=== PATIENT | male | born 1950 | race Caucasian/White ===

== ENCOUNTER 2018-05-06 16:27 | Observation (INO) ==
[2018-05-06] MEDS ORDERED: Sod Chloride 0.9% Inj 1,000 ML IV.SIG ONE (17:09)
--- NOTE | 2018-05-06 17:37 | XR ---
EXAM DATE: 05/06/2018 5:34 PM EDT AGE/SEX: 68 years / Male INDICATIONS: Short of breath. CLINICAL DATA: This is the patient's initial encounter. Patient reports that signs and symptoms have been present for 1 day and indicates a pain score of 0/10. MEDICAL/SURGICAL HISTORY: None. None. [place] [facility] [place]. . FINDINGS: A single AP view of the chest demonstrates the lungs to be symmetrically aerated without evidence of mass, infiltrate or effusion. The cardiomediastinal contours are unremarkable. Osseous structures a re intact. CONCLUSION: Negative examination. Electronically signed by: Ted Gore MD 05/06/2018 5:35 PM EDT
--- NOTE | 2018-05-06 17:48 | ED ---
HPI General Chief complaint: Weakness Stated complaint: Weakness Time Seen by Provider: 05/06/18 16:51 Source: patient Mode of arrival: EMS Limitations: no limitations History of Present Illness HPI Narrative: 68-year-old male presents to the emergency department via EMS for evaluation of generalized weakness for 2 weeks. He states that he is so weak has been unable to walk for the past 2 days, therefore not eating. The patient is disheveled. He has PVCs on his feet. He has large Palmira rash under the breast in the right axilla with drainage noted. The patient denies any pain. He denies any falls or head injury. He denies being on anticoagulants. The patient lives alone. He states he has no family nearby. Moderate severity. MD Complaint: generalized weakness Onset (ago): week(s) (2) Duration: constant Location: generalized, LLE and RLE Migration: none Severity: moderate Relieving factors: none Exacerbating factors: none Associated symptoms: denies other symptoms Related Data Home Medications Medication Instructions Recorded Confirmed aspirin [Aspir-81] 81 mg PO DAILY 05/06/18 05/06/18 Allergies Allergy/AdvReac Type Severity Reaction Status Date / Time Iodinated Contrast- Oral and Allergy Mild Nausea/Vomi Verified 03/26/18 11:28 IV Dye ting Review of Systems ROS: all other systems reviewed are negative [facility] Social History Social History Smoking Status: Unknown if ever smoked How Often Do You Have a Drink Containing Alcohol: Unable to Obtain Immunization History Tetanus Immunization: Unsure Exam Narrative Exam Narrative: GENERAL: Dissheveled, obese male patient, afebrile. SKIN: Focused skin assessment warm/dry. Patient has rash consistent with intertrigo to right axilla, under bilateral breasts. HEAD: Normocephalic. Atraumatic. EYES: No scleral icterus. No injection or drainage. NECK: Supple, trachea midline. No JVD or lymphadenopathy. CARDIOVASCULAR: Regular rate and rhythm without murmurs, gallops, or rubs. RESPIRATORY: Breath sounds equal bilaterally. No accessory muscle use. Lung sounds are clear to auscultation. GASTROINTESTINAL: Abdomen soft, non-tender, nondistended. MUSCULOSKELETAL: No cyanosis, or edema. BACK: Nontender without obvious deformity. No CVA tenderness. Course Initial Documented Vital Signs Temperature 97.5 F L 05/06/18 16:43 Pulse Rate 96 H 05/06/18 16:43 Respiratory Rate 25 H 05/06/18 16:43 Blood Pressure 125/61 05/06/18 16:43 Pulse Oximetry 96 05/06/18 16:43 Last Documented Vital Signs Temperature 97.5 F L 05/06/18 16:43 Pulse Rate 94 H 05/06/18 19:54 Respiratory Rate 18 05/06/18 19:54 Blood Pressure 124/55 L 05/06/18 19:54 Pulse Oximetry 97 05/06/18 19:54 Medical Decision Making MDM Narrative Medical decision making narrative: 68-year-old male presents to the emergency department via EMS for evaluation of generalized weakness, inability to eat for the past 2 days because he cannot walk. He lives alone. Otherwise, he has no complaints. IV access obtained. EKG, CBC, CMP, CK, troponin, magnesium, PTT, PT/INR, chest x-ray ordered and pending. Patient is given normal saline 1 L IV bolus. EKG shows sinus rhythm, heart rate 91, no acute ST changes. CBC showed leukocytosis 12.8. CMP shows hyponatremia 135, hyperkalemia 5.2, BUN 28. CK is 180. Troponin is less than 0.02. Magnesium is 1.8. PTT is 25.1. PT/INR is 10.9/1.1. Chest x-ray is negative. Patient be admitted for generalized weakness, dehydration. Dr. Gonzalez accepted admission. Medical Screen Exam Complete: Yes Emergency Medical Condition: Yes Differential Diagnosis Differential Diagnosis: Electrolyte abnormality versus dehydration versus inability care for self Medical Records Medical records reviewed: Yes I reviewed the patient's medical records. Lab Data Result diagrams: 05/06/18 18:37 05/06/18 18:37 Lab Results 05/06/18 05/06/18 05/06/18 Range/Units 18:37 18:37 18:37 WBC 12.8 H (4.0-11.0) th/mm3 RBC 4.69 (4.50-5.90) mil/mm3 Hgb 14.2 (13.0-17.0) gm/dL Hct 44.1 (39.0-51.0) % MCV 94.1 (80.0-100.0) fL MCH 30.3 (27.0-34.0) pg MCHC 32.2 (32.0-36.0) % RDW 14.7 (11.6-17.2) % Plt Count 276 (150-450) th/mm3 MPV 10.8 (7.0-11.0) fL Prelim Diff (Auto) [employer] Neut % (Auto) 85.6 H (16.0-70.0) % Lymph % (Auto) 7.4 L (9.0-44.0) % [place] % (Auto) 6.2 (0.0-8.0) % Eos % (Auto) 0.6 (0.0-4.0) % Baso % (Auto) 0.2 (0.0-2.0) % Neut # (Auto) 11.0 H (1.8-7.7) th/mm3 Lymph # (Auto) 1.0 (1.0-4.8) th/mm3 [place] # (Auto) 0.8 (0.0-0.9) th/mm3 Eos # (Auto) 0.1 (0.0-0.4) th/mm3 Baso # (Auto) 0.0 (0.0-0.2) th/mm3 WBC Differential Manual diff final Seg Neuts % (Manual) 87 H (16-70) % Lymphocytes % (Manual) 6 L (9-44) % Monocytes % (Manual) 6 (0-8) % Eosinophils % (Manual) 1 (0-4) % Abs Neuts (Manual) 11.1 H (1.8-7.7) th/mm3 Differential Comment . Platelet Estimate Normal (Normal) Platelet Morphology Normal (Normal) RBC Morphology Normal (Normal) PT 10.9 (9.8-11.6) sec INR 1.1 Ratio APTT 25.1 (24.3-30.1) sec Sodium 135 L (136-145) meq/L Potassium 5.2 H (3.5-5.1) meq/L Chloride 101 (98-107) meq/L Carbon Dioxide 20.6 L (21.0-32.0) meq/L Anion Gap 13 (5-15) meq/L BUN 28 H (7-18) mg/dL Creatinine 1.00 (0.60-1.30) mg/dL Estimated GFR 74 L (>89) mL/min Random Glucose 56 L (74-106) mg/dL Calcium 8.8 (8.5-10.1) mg/dL Magnesium 1.8 (1.5-2.5) mg/dL Total Bilirubin 0.9 (0.2-1.0) mg/dL AST 38 H (15-37) U/L ALT 22 (12-78) U/L Alkaline Phosphatase 97 (45-117) U/L Total Creatine Kinase 180 (39-308) U/L Troponin I Less than 0.02 L (0.02-0.05) ng/mL Total Protein 8.1 (6.4-8.2) g/dL Albumin 3.4 (3.4-5.0) g/dL Urine Color (Yellw/Straw) Urine Clarity (Clear) Urine pH (5.0-8.5) Ur Specific [place] (1.002-1.035) Urine Protein (Neg-Trace) mg/dL Urine Glucose (UA) (Negative) mg/dL Urine Ketones (Negative) mg/dL Urine Occult Blood (Negative) Urine Nitrate (Negative) Urine Bilirubin (Negative) Urine Urobilinogen (Less than 2) mg/dL Ur Leukocyte Esterase (Negative) Urine RBC (0-3) /hpf Urine WBC (0-5) /hpf Hyaline Casts (0-3) /lpf Urine Mucus (Occasional) /lpf Micro UA Comment Ur Microscopic Review Urine Culture Comments 05/06/18 Range/Units 19:50 WBC (4.0-11.0) th/mm3 RBC (4.50-5.90) mil/mm3 Hgb (13.0-17.0) gm/dL Hct (39.0-51.0) % MCV (80.0-100.0) fL MCH (27.0-34.0) pg MCHC (32.0-36.0) % RDW (11.6-17.2) % Plt Count (150-450) th/mm3 MPV (7.0-11.0) fL Prelim Diff (Auto) Neut % (Auto) (16.0-70.0) % Lymph % (Auto) (9.0-44.0) % [place] % (Auto) (0.0-8.0) % Eos % (Auto) (0.0-4.0) % Baso % (Auto) (0.0-2.0) % Neut # (Auto) (1.8-7.7) th/mm3 Lymph # (Auto) (1.0-4.8) th/mm3 [place] # (Auto) (0.0-0.9) th/mm3 Eos # (Auto) (0.0-0.4) th/mm3 Baso # (Auto) (0.0-0.2) th/mm3 WBC Differential Seg Neuts % (Manual) (16-70) % Lymphocytes % (Manual) (9-44) % Monocytes % (Manual) (0-8) % Eosinophils % (Manual) (0-4) % Abs Neuts (Manual) (1.8-7.7) th/mm3 Differential Comment Platelet Estimate (Normal) Platelet Morphology (Normal) RBC Morphology (Normal) PT (9.8-11.6) sec INR Ratio APTT (24.3-30.1) sec Sodium (136-145) meq/L Potassium (3.5-5.1) meq/L Chloride (98-107) meq/L Carbon Dioxide (21.0-32.0) meq/L Anion Gap (5-15) meq/L BUN (7-18) mg/dL Creatinine (0.60-1.30) mg/dL Estimated GFR (>89) mL/min Random Glucose (74-106) mg/dL Calcium (8.5-10.1) mg/dL Magnesium (1.5-2.5) mg/dL Total Bilirubin (0.2-1.0) mg/dL AST (15-37) U/L ALT (12-78) U/L Alkaline Phosphatase (45-117) U/L Total Creatine Kinase (39-308) U/L Troponin I (0.02-0.05) ng/mL Total Protein (6.4-8.2) g/dL Albumin (3.4-5.0) g/dL Urine Color Yellow (Yellw/Straw) Urine Clarity Hazy H (Clear) Urine pH 5.0 (5.0-8.5) Ur Specific [place] 1.026 (1.002-1.035) Urine Protein 30 H (Neg-Trace) mg/dL Urine Glucose (UA) Negative (Negative) mg/dL Urine Ketones 80 or greater H (Negative) mg/dL Urine Occult Blood Moderate H (Negative) Urine Nitrate Negative (Negative) Urine Bilirubin Negative (Negative) Urine Urobilinogen Less than 2 (Less than 2) mg/dL Ur Leukocyte Esterase Negative (Negative) Urine RBC 2 (0-3) /hpf Urine WBC 1 (0-5) /hpf Hyaline Casts 5 (0-3) /lpf Urine Mucus Few H (Occasional) /lpf Micro UA Comment Cath-culture not ind Ur Microscopic Review Not Reportable Urine Culture Comments Cath-cult not ind Imaging Data Radiologist's impression: Chest X-Ray 05/06/18 17:08 CONCLUSION: Negative examination. Discharge Plan Discharge Disposition Patient Disposition: 30 Still Patient Discharge Details Diagnosis: Generalized weakness, Dehydration Physicians Team ED Provider: Taylor Sampson ED Midlevel Provider: Eloise Pressley Primary Care Provider: Primary Care Gita Maciel Rxs /Orders / Referrals /Forms Prescriptions: No Action aspirin [Aspir-81] 81 mg Tablet,Delayed Release (Dr/Ec) 81 mg PO DAILY RF: 0 Discharge Interventions Interventions: Vital Signs Last Done: 05/06/18 19:54 Status ED Status: Admitted Observation Patient
[2018-05-06 20:00] LABS: Hematocrit 44.1 % (39.0-51.0); Hemoglobin 14.2 gm/dL (13.0-17.0); Mean Corpuscular HGB Conc 32.2 % (32.0-36.0); Mean Corpuscular Hemoglobin 30.3 pg (27.0-34.0); Mean Corpuscular Volume 94.1 fL (80.0-100.0); Mean Platelet Volume 10.8 fL (7.0-11.0); Platelet Count 276 th/mm3 (150-450); Red Blood Count 4.69 mil/mm3 (4.50-5.90); Red Cell Distribution Width 14.7 % (11.6-17.2); White Blood Count 12.8 th/mm3 (4.0-11.0)
[2018-05-06 20:03] LABS: Activated Partial Thrombo Time 25.1 sec (24.3-30.1); INR 1.1 Ratio; Prothrombin Time 10.9 sec (9.8-11.6)
[2018-05-06 20:07] LABS: Alanine Aminotransferase 22 U/L (12-78); Albumin 3.4 g/dL (3.4-5.0); Anion Gap 13 meq/L (5-15); Aspartate Aminotransferase 38 U/L (15-37); Blood Urea Nitrogen 28 mg/dL (7-18); Calcium 8.8 mg/dL (8.5-10.1); Carbon Dioxide 20.6 meq/L (21.0-32.0); Chloride 101 meq/L (98-107); Glomerular Filtration Rate 74 mL/min (>89); Glucose,Random 56 mg/dL (74-106); Magnesium 1.8 mg/dL (1.5-2.5); Potassium 5.2 meq/L (3.5-5.1); Sodium 135 meq/L (136-145)
[2018-05-06 20:10] LABS: Alkaline Phosphatase 97 U/L (45-117); Creatine Kinase 180 U/L (39-308); Total Protein 8.1 g/dL (6.4-8.2)
[2018-05-06 20:33] LABS: Bilirubin,Urine Negative (Negative); Clarity,Urine Hazy (Clear); Color,Urine Yellow (Yellw/Straw); Glucose,Urine (UA) Negative (Negative); Hyaline Casts,Urine 5 /lpf (0-3); Leukocyte Esterase,Urine Negative (Negative); Mucus,Urine Few /lpf (Occasional); Nitrite,Urine Negative (Negative); Specific Gravity,Urine 1.026 (1.002-1.035)
[2018-05-06 20:50] LABS: Lymph % (Auto) 7.4 % (9.0-44.0); Neut % (Auto) 85.6 % (16.0-70.0)
[2018-05-06 20:51] LABS: Baso % (Auto) 0.2 % (0.0-2.0); Eos # (Auto) 0.1 th/mm3 (0.0-0.4); Eos % (Auto) 0.6 % (0.0-4.0); Mono # (Auto) 0.8 th/mm3 (0.0-0.9); Mono % (Auto) 6.2 % (0.0-8.0)
[2018-05-06 21:28] LABS: Eosinophils 1 % (0-4); Lymphocytes 6 % (9-44); Monocytes 6 % (0-8)
[2018-05-06 21:30] LABS: Platelet Estimate Normal (Normal); Platelet Morphology Normal (Normal); RBC Morphology Normal (Normal)
[2018-05-06] MEDS ORDERED: Bisacodyl 10 MG Supp RECTAL PRN (22:22)
[2018-05-06] MEDS ORDERED: Sod Chloride 0.9% Inj 1,000 ML IV.CONT SCH (22:30)
[2018-05-06] MEDS ORDERED: Sodium Chloride 0.9% 2 ML Flush PRN IV.FLUSH (22:39)
[2018-05-06] MEDS: Dextrose 5%/NaCl 0.9% Inj 1,000 ML IV.CONT SCH ×2 (23:27→23:28)
[2018-05-07 07:34] VITALS: RESP 18
--- NOTE | 2018-05-07 08:01 | P.HPIM ---
History of Present Illness Service: [facility] Primary Care Physician: No Primary Care Physician Chief Complaint: weakness History of Present Illness: This is a 68-year-old male with PMHx of Hypertension not on medicines who presented to the emergency room due to weakness 4 days. Patient states that he lives alone in a trailer since his mother 3 years ago. Patient states that he is able to care for himself and he completes ADL's. Patient has a walker that he uses however the trailer that he lives in a small and he states that his walker as well as his motorized wheelchair do not fit in his home as they are too large. Patient reports that his AC broke 4 days ago and that the increased heat in his home made him have a decreased appetite and that his p.o. intake has been decreased because of that. Patient now reports weakness in the last few days as well. This morning however he has an appetite, and would like to eat. Patient denies chest pain, shortness of breath, recent illness, fever, and chills. - Diagnosis (1) Generalized weakness (2) Dehydration (3) Physical deconditioning (4) General physical deterioration (5) Falls frequently Review of Systems All other systems reviewed negative except as stated in HPI PMFSH - Medical History Medical History: Medical History (Last Reviewed 05/07/18 @ 11:29 by Jadyn Rosa MD) Hypertension - Surgical History Surgical History: Surgical History (Last Reviewed 05/07/18 @ 11:29 by Jadyn Rosa MD) No history of previous surgery - Family History Family History: Family History (Last Updated 05/07/18 @ 11:30 by Jadyn Rosa MD) Other Family history normal - Social History I have reviewed the patient's Social History: Yes - Tobacco History Second Hand Smoke Exposure: No Smoking Status: Never smoker - Alcohol History How Often Do You Have a Drink Containing Alcohol: Never - Substance Use History Substance History: No History of Abuse (lives alone since mother 3 yrs ago, lives in a tralier) - Immunization History Tetanus Immunization: Unsure Medications and Allergies Active Medications: Active Medications Al Hydroxide/Mg Hydroxide (Milk Of Magnshai Liq) 30 ml PO Q12H PRN PRN Reason: Mild Constipation Aspirin (Ecotrin) 81 mg PO DAILY CORINNE Bisacodyl (Dulcolax Supp) 10 mg RECTAL DAILY PRN PRN Reason: SEVERE CONSITIPATION Dextrose/Sodium Chloride (D5w/Normal Saline Inj) 1,000 mls @ 84 mls/hr IV.CONT .[id number] [facility] Last Admin: 05/06/18 23:28 Dose: 84 mls/hr Lactulose (Lactulose Liq) 30 ml PO DAILY PRN PRN Reason: SEVERE CONSITIPATION Sennosides (Senokot) 17.2 mg PO Q12H PRN PRN Reason: Moderate Constipation Sodium Chloride (Ns Flush) 2 ml IV.FLUSH BID CORINNE Sodium Chloride (Ns Flush) 2 ml IV.FLUSH PRN PRN PRN Reason: FLUSH AFTER USING IV ACCESS Allergies Allergy/AdvReac Type Severity Reaction Status Date / Time Iodinated Contrast- Oral and Allergy Mild Nausea/Vomi Verified 03/26/18 11:28 IV Dye ting Home Medications Medication Instructions Recorded Confirmed Type aspirin [Aspir-81] 81 mg PO DAILY 05/06/18 05/06/18 History Exam Vital signs: Vital Signs 05/06/18 16:43 05/06/18 19:54 05/06/18 23:19 Temperature 97.5 F L 97.9 F Pulse Rate 96 H 94 H 92 H Respiratory Rate 25 H 18 18 Blood Pressure 125/61 124/55 L 134/71 Pulse Oximetry 96 97 96 05/07/18 05:16 05/07/18 07:32 Temperature 97.4 F L 98.1 F Pulse Rate 78 80 Respiratory Rate 9 L 18 Blood Pressure 145/70 H 127/50 L Pulse Oximetry 94 L 95 Intake & Output 05/06/18 05/07/18 05/07/18 18:59 06:59 18:59 Intake Total 1000 / 1000 Balance 1000 / 1000 Weight 158.757 kg 158.757 kg Intake: IV 1000 / 1000 NS Inj 1,000 ML @ Wide Open IV. 1000 / 1000 SIG BOLUS ONE Rx#:[id number] Other: # Voids 1 Weight On Admission 158.757 kg Narrative: GENERAL: obese, male, in NAD, speaking in full sentences SKIN: Warm and dry. HEENT: Normocephalic. No scleral icterus. No injection or drainage. MOM, edentulous. NECK: Supple, trachea midline. No JVD or lymphadenopathy. CARDIOVASCULAR: Regular rate and rhythm without murmurs, gallops, or rubs. RESPIRATORY: Breath sounds equal bilaterally. No accessory muscle use. GASTROINTESTINAL: Abdomen soft, non-tender, nondistended. MUSCULOSKELETAL: No cyanosis, or edema. BACK: Nontender without obvious deformity. No CVA tenderness. NEURO: AAOX3, sensation intact, motor system 4/4 of all extremities, steady gait. Results - Labs CBC & Chem 7: 05/07/18 08:35 05/07/18 08:35 Labs: Short CBC 05/06/18 Range/Units 18:37 WBC 12.8 H (4.0-11.0) th/mm3 Hgb 14.2 (13.0-17.0) gm/dL Hct 44.1 (39.0-51.0) % Plt Count 276 (150-450) th/mm3 BMP 05/06/18 18:37 Sodium 135 L Potassium 5.2 H Chloride 101 Carbon Dioxide 20.6 L BUN 28 H Creatinine 1.00 Calcium 8.8 Cardiac Enzymes 05/06/18 Range/Units 18:37 Total Creatine Kinase 180 (39-308) U/L Troponin I Less than 0.02 L (0.02-0.05) ng/mL Liver Function 05/06/18 Range/Units 18:37 Total Bilirubin 0.9 (0.2-1.0) mg/dL AST 38 H (15-37) U/L ALT 22 (12-78) U/L Alkaline Phosphatase 97 (45-117) U/L Albumin 3.4 (3.4-5.0) g/dL Urine 05/06/18 Range/Units 19:50 Urine Color Yellow (Yellw/Straw) Urine Clarity Hazy H (Clear) Urine pH 5.0 (5.0-8.5) Ur Specific [place] 1.026 (1.002-1.035) Urine Protein 30 H (Neg-Trace) mg/dL Urine Glucose (UA) Negative (Negative) mg/dL - Imaging Impressions Chest X-Ray 05/06/18 17:08 CONCLUSION: Negative examination. Caprini VTE Risk Assessment Caprini VTE Risk Assessment: No/Low Risk (score <= 1) Caprini Risk Assessment Model: Point Value = 1 Point Value = 2 Point Value = 3 Point Value = 5 Age 41-60 Minor surgery BMI > 25 kg/m2 Swollen legs Varicose veins or History of unexplained or recurrent spontaneous Oral contraceptives or hormone replacement Sepsis (< 1 month) Serious lung disease, including pneumonia (< 1 month) Abnormal pulmonary function Acute myocardial infarction Congestive heart failure (< 1 month) History of inflammatory bowel disease Medical patient at bed rest Age 61-74 Arthroscopic surgery Major open surgery (> 45 min) Laparoscopic surgery (> 45 min) Malignancy Confined to bed (> 72 hours) Immobilizing plaster cast Central venous access Age >= 75 History of VTE Family history of VTE Factor V Leiden Prothrombin [id number] Lupus anticoagulant Anticardiolipin antibodies Elevated serum homocysteine Heparin-induced thrombocytopenia Other congenital or acquired thrombophilia Stroke (< 1 month) Elective arthroplasty Hip, pelvis, or leg fracture Acute spinal cord injury (< 1 month) Prophylaxis Regimen: Total Risk Factor Score Risk Level Prophylaxis Regimen 0-1 Low Early ambulation 2 Moderate Order ONE of the following: *Sequential Compression Device (SCD) *Heparin 5000 units SQ BID 3-4 Higher Order ONE of the following medications: *Heparin 5000 units SQ TID *Enoxaparin/Lovenox 40 mg SQ daily (WT < 150 kg, CrCl > 30 mL/min) *Enoxaparin/Lovenox 30 mg SQ daily (WT < 150 kg, CrCl > 10-29 mL/min) *Enoxaparin/Lovenox 30 mg SQ BID (WT < 150 kg, CrCl > 30 mL/min) AND/OR *Sequential Compression Device (SCD) 5 or more Highest Order ONE of the following medications: *Heparin 5000 units SQ TID (Preferred with Epidurals) *Enoxaparin/Lovenox 40 mg SQ daily (WT < 150 kg, CrCl > 30 mL/min) *Enoxaparin/Lovenox 30 mg SQ daily (WT < 150 kg, CrCl > 10-29 mL/min) *Enoxaparin/Lovenox 30 mg SQ BID (WT < 150 kg, CrCl > 30 mL/min) AND *Sequential Compression Device (SCD) Assessment and Plan - Assessment (1) Generalized weakness Code(s): R53.1 - Weakness Status: Acute (2) Dehydration Code(s): E86.0 - Dehydration Status: Acute (3) Physical deconditioning Code(s): R53.81 - Other malaise Status: Acute (4) General physical deterioration Code(s): R53.81 - Other malaise Status: Acute (5) Falls frequently Code(s): R29.6 - Repeated falls Status: Acute - Plan This is a 68 y/o CM admitted for dehydration, weakness, and deconditioning x4 days found to have BUN 24 and UA +ketones and admitted for IV hydration and PT evaluation, HD#1 1. Dehydration -BUN 24 from 28 on admission -IVF and PO hydration 2. Generalized Weakness/Deconditioning -improved -Likely due to above -PT to evaluate and will set up HH with PT on discharge as needed -Has motorized wheelchair and walker at home 3. Obesity -discussed diet and increased physical activity once stable 4. Intertrigo Under Breast Folds -RN advised to keep area clean and dry -Rx Nystatin powder QID -Cx obtain in ED, pending, however characteristic for Palmria 5.Hyponatremia/Leukocytosis -both resolved this AM -afebrile 6. DVT PPX: SCD's 7. Dispo: Discharge home with HH for PT services and home safety Code Status: full Discussed Condition With: patient, RN, case mgmt H&P: Quality - VTE Deep Vein Thrombosis/Pulmonary Embolism Present on Admission: No
[2018-05-07 08:53] LABS: Baso % (Auto) 0.2 % (0.0-2.0); Eos # (Auto) 0.2 th/mm3 (0.0-0.4); Eos % (Auto) 1.9 % (0.0-4.0); Hematocrit 38.2 % (39.0-51.0); Hemoglobin 12.7 gm/dL (13.0-17.0); Lymph # (Auto) 0.9 th/mm3 (1.0-4.8); Lymph % (Auto) 10.2 % (9.0-44.0); Mean Corpuscular HGB Conc 33.2 % (32.0-36.0); Mean Corpuscular Hemoglobin 30.7 pg (27.0-34.0); Mean Corpuscular Volume 92.7 fL (80.0-100.0); Mean Platelet Volume 9.5 fL (7.0-11.0); Mono # (Auto) 0.8 th/mm3 (0.0-0.9); Mono % (Auto) 8.6 % (0.0-8.0); Neut # (Auto) 7.1 th/mm3 (1.8-7.7); Neut % (Auto) 79.1 % (16.0-70.0); Platelet Count 228 th/mm3 (150-450); Red Blood Count 4.12 mil/mm3 (4.50-5.90); Red Cell Distribution Width 14.5 % (11.6-17.2)
[2018-05-07] MEDS ORDERED: Sod Chloride 0.9% Inj 1,000 ML IV.CONT SCH (09:00)
[2018-05-07] MEDS ORDERED: Sodium Chloride 0.9% 2 ML Flush BID IV.FLUSH SCH (09:00)
[2018-05-07 09:26] LABS: Alanine Aminotransferase 18 U/L (12-78); Anion Gap 11 meq/L (5-15); Blood Urea Nitrogen 24 mg/dL (7-18); Calcium 8.1 mg/dL (8.5-10.1); Carbon Dioxide 23.3 meq/L (21.0-32.0); Chloride 104 meq/L (98-107); Glomerular Filtration Rate Greater Than 89 mL/min (>89); Glucose,Random 89 mg/dL (74-106); Potassium 3.5 meq/L (3.5-5.1); Sodium 138 meq/L (136-145)
[2018-05-07 09:28] LABS: Aspartate Aminotransferase 17 U/L (15-37)
[2018-05-07 09:29] LABS: Alkaline Phosphatase 83 U/L (45-117); Total Protein 6.7 g/dL (6.4-8.2)
--- NOTE | 2018-05-07 11:27 | P.DCO ---
- Physical Therapy Order: Evaluate and treat - Case Management Consult Yes - Certification I have seen patient Paxton Wilson on 05/07/18. My clinical findings support the need for the requested home health care services because: Deconditioned with increased weakness I certify that my clinical findings support that this patient is homebound because: Impaired cognitive ability/safety
[2018-05-07 11:34] VITALS: BP 138/68; PULSE 83; TEMP 98.8; O2SAT 98
[2018-05-07] MEDS: Nystatin 100,000 UNITS/GM Powder 15 GM Bottle TOPICAL SCH ×2 (12:16→14:01)
--- NOTE | 2018-05-07 18:16 | ECG ---
Date Performed: 05/06/2018 Time Performed: 18:44:35 PTAGE: 68 years EKG: Sinus rhythm NONSPECIFIC T-WAVE ABNORMALITY Since the previous tracing, no significant change noted BORDERLINE EC G PREVIOUS TRACING : 04/19/2016 07.26 DOCTOR: Sarabjit Root Interpretating Date/Time 05/07/2018 18:15:20
== END 2018-05-07 15:07 | disposition home health service (06) ==
LOC: NEDA 16:27 → NEPE 16:27 → NEPFCDU 23:09
PROVIDERS: ADMIT Family Medicine; ATTEND Family Medicine

== ENCOUNTER 2018-05-09 11:06 | Inpatient (IN) ==
--- NOTE | 2018-05-09 11:55 | ED ---
HPI General Chief complaint: Weakness Stated complaint: Weakness Time Seen by Provider: 05/09/18 11:42 Source: patient and EMS Mode of arrival: EMS Limitations: no limitations History of Present Illness HPI Narrative: Patient is a 68-year-old male presenting to emergency department for evaluation of generalized weakness. Patient states every time he has to use the bathroom he cannot get himself off of the toilet bowl. He states his legs are too weak to lift him. Because of the weakness patient states that he does not eat well because he cannot get food. This is been ongoing for several months, patient has a walker and wheelchair, he does not have rails for his commode. He denies any chest pain, shortness of breath, fever, chills, abdominal pain, dysuria, headache, dizziness. Symptom onset has been gradual, symptoms appear chronic with no alleviating or exacerbating factors. Patient lives alone, he is disheveled. MD Complaint: generalized weakness Onset (ago): month(s) Duration: constant Location: generalized Migration: none Severity: moderate Relieving factors: none Exacerbating factors: none Context: history of similar Associated symptoms: denies other symptoms Related Data Home Medications Medication Instructions Recorded Confirmed aspirin [Aspir-81] 81 mg PO DAILY 05/06/18 05/09/18 Previous Rx's Medication Instructions Recorded nystatin 1 applic TOPICAL TID 14 Days #60 g 05/07/18 Allergies Allergy/AdvReac Type Severity Reaction Status Date / Time Iodinated Contrast- Oral and Allergy Mild Nausea/Vomi Verified 03/26/18 11:28 IV Dye ting Review of Systems ROS: all other systems reviewed are negative PMFSH History History Provided By: Patient Medical History Medical History Hypertension (Acute) Surgical History Surgical History No history of previous surgery (Acute) Family History Family History Other Family history normal Social History Social History Substance History: No History of Abuse Second Hand Smoke Exposure: No Smoking Status: Unknown if ever smoked How Often Do You Have a Drink Containing Alcohol: Never Recent Travel in [facility] within the Last 8 Weeks: No Recent Out of Country Travel within the Last 8 Weeks: No Exam Narrative Exam Narrative: GENERAL: Obese, disheveled, alert male. Sitting in no acute distress. SKIN: Focused skin assessment warm/dry. Hyperpigmented, well-demarcated rash underneath left axilla and breasts. HEAD: Atraumatic. Normocephalic. EYES: Pupils equal and round. No scleral icterus. No injection or drainage. ENT: No nasal bleeding or discharge. Mucous membranes pink and moist. NECK: Trachea midline. No JVD. CARDIOVASCULAR: Regular rate and rhythm. No murmur appreciated. RESPIRATORY: No accessory muscle use. Clear to auscultation. Breath sounds equal bilaterally. GASTROINTESTINAL: Abdomen soft, non-tender, nondistended. Hepatic and splenic margins not palpable. MUSCULOSKELETAL: No obvious deformities. No clubbing. No cyanosis. No edema. NEUROLOGICAL: Awake and alert. No obvious cranial nerve deficits. Motor grossly within normal limits. Normal speech. PSYCHIATRIC: Appropriate mood and affect; insight and judgment normal. Course Initial Documented Vital Signs Temperature 98.5 F 05/09/18 11:31 Pulse Rate 80 05/09/18 11:31 Respiratory Rate 18 05/09/18 11:31 Blood Pressure 146/65 H 05/09/18 11:31 Pulse Oximetry 96 05/09/18 11:31 Last Documented Vital Signs Temperature 98.5 F 05/09/18 11:31 Pulse Rate 77 05/09/18 11:34 Respiratory Rate 18 05/09/18 11:34 Blood Pressure 141/88 H 05/09/18 11:34 Pulse Oximetry 96 05/09/18 11:34 Medical Decision Making [facility] Narrative Medical decision making narrative: Patient is a 68-year-old male presenting to the emergency department for evaluation of weakness. Patient's vital signs are stable, labs ordered and pending. Medical records reviewed, patient was here 2 days ago admitted with dehydration. He was discharged home with home health. Patient was placed on telemetry monitoring continuous pulse oximetry. IV access was established. Initial EKG shows sinus rhythm with sinus arrhythmia, this was reviewed by my attending physician. Labs reviewed, no acute findings identified. Chest x-ray shows cardiomegaly, no acute disease. Urinalysis is unremarkable. Patient is medically cleared, case management has been consulted. Patient has had multiple presentations to the emergency department with similar complaints. Patient is agreeable to being placed if that is a possibility. Medicaid application completed, patient will be admitted for usp placement. Additionally patient will be started on Diflucan IV for the candidal infection to his torso. Medical Screen Exam Complete: Yes Emergency Medical Condition: Yes Differential Diagnosis Differential Diagnosis: Deconditioning versus metabolic abnormality versus arrhythmia versus other Medical Records Medical records reviewed: Yes I reviewed the patient's medical records. Lab Data Lab results reviewed: Yes I reviewed the patient's lab results. Result diagrams: 05/09/18 12:00 05/09/18 12:00 Lab Results 05/09/18 05/09/18 05/09/18 Range/Units 12:00 12:00 12:00 WBC 8.2 (4.0-11.0) th/mm3 RBC 4.36 L (4.50-5.90) mil/mm3 Hgb 13.4 (13.0-17.0) gm/dL Hct 40.4 (39.0-51.0) % MCV 92.8 (80.0-100.0) fL MCH 30.7 (27.0-34.0) pg MCHC 33.1 (32.0-36.0) % RDW 14.6 (11.6-17.2) % Plt Count 243 (150-450) th/mm3 MPV 10.2 (7.0-11.0) fL Neut % (Auto) 80.0 H (16.0-70.0) % Lymph % (Auto) 9.7 (9.0-44.0) % [place] % (Auto) 7.7 (0.0-8.0) % Eos % (Auto) 2.3 (0.0-4.0) % Baso % (Auto) 0.3 (0.0-2.0) % Neut # (Auto) 6.6 (1.8-7.7) th/mm3 Lymph # (Auto) 0.8 L (1.0-4.8) th/mm3 [place] # (Auto) 0.6 (0.0-0.9) th/mm3 Eos # (Auto) 0.2 (0.0-0.4) th/mm3 Baso # (Auto) 0.0 (0.0-0.2) th/mm3 WBC Differential . Differential Comment Auto diff final Sodium 142 (136-145) meq/L Potassium 4.0 (3.5-5.1) meq/L Chloride 105 (98-107) meq/L Carbon Dioxide 29.9 (21.0-32.0) meq/L Anion Gap 7 (5-15) meq/L BUN 16 (7-18) mg/dL Creatinine 0.87 (0.60-1.30) mg/dL Estimated GFR 87 L (>89) mL/min Random Glucose 99 (74-106) mg/dL Calcium 8.5 (8.5-10.1) mg/dL Magnesium 1.9 (1.5-2.5) mg/dL Total Bilirubin 0.5 (0.2-1.0) mg/dL AST 30 (15-37) U/L ALT 21 (12-78) U/L Alkaline Phosphatase 85 (45-117) U/L Total Creatine Kinase 195 (39-308) U/L Troponin I Less than 0.02 L (0.02-0.05) ng/mL Total Protein 7.0 (6.4-8.2) g/dL Albumin 3.1 L (3.4-5.0) g/dL TSH 0.108 L (0.358-3.740) uIU/mL Urine Color (Yellw/Straw) Urine Clarity (Clear) Urine pH (5.0-8.5) Ur Specific [place] (1.002-1.035) Urine Protein (Neg-Trace) mg/dL Urine Glucose (UA) (Negative) mg/dL Urine Ketones (Negative) mg/dL Urine Occult Blood (Negative) Urine Nitrate (Negative) Urine Bilirubin (Negative) Urine Urobilinogen (Less than 2) mg/dL Ur Leukocyte Esterase (Negative) Urine RBC (0-3) /hpf Urine WBC (0-5) /hpf Ur Squamous Epith Cells (0-5) /hpf Amorphous Sediment (None) /hpf Urine Bacteria (None) /hpf Urine Mucus (Occasional) /lpf Micro UA Comment Ur Microscopic Review Urine Culture Comments 05/09/18 Range/Units 12:15 WBC (4.0-11.0) th/mm3 RBC (4.50-5.90) mil/mm3 Hgb (13.0-17.0) gm/dL Hct (39.0-51.0) % MCV (80.0-100.0) fL MCH (27.0-34.0) pg MCHC (32.0-36.0) % RDW (11.6-17.2) % Plt Count (150-450) th/mm3 MPV (7.0-11.0) fL Neut % (Auto) (16.0-70.0) % Lymph % (Auto) (9.0-44.0) % [place] % (Auto) (0.0-8.0) % Eos % (Auto) (0.0-4.0) % Baso % (Auto) (0.0-2.0) % Neut # (Auto) (1.8-7.7) th/mm3 Lymph # (Auto) (1.0-4.8) th/mm3 [place] # (Auto) (0.0-0.9) th/mm3 Eos # (Auto) (0.0-0.4) th/mm3 Baso # (Auto) (0.0-0.2) th/mm3 WBC Differential Differential Comment Sodium (136-145) meq/L Potassium (3.5-5.1) meq/L Chloride (98-107) meq/L Carbon Dioxide (21.0-32.0) meq/L Anion Gap (5-15) meq/L BUN (7-18) mg/dL Creatinine (0.60-1.30) mg/dL Estimated GFR (>89) mL/min Random Glucose (74-106) mg/dL Calcium (8.5-10.1) mg/dL Magnesium (1.5-2.5) mg/dL Total Bilirubin (0.2-1.0) mg/dL AST (15-37) U/L ALT (12-78) U/L Alkaline Phosphatase (45-117) U/L Total Creatine Kinase (39-308) U/L Troponin I (0.02-0.05) ng/mL Total Protein (6.4-8.2) g/dL Albumin (3.4-5.0) g/dL TSH (0.358-3.740) uIU/mL Urine Color Yellow (Yellw/Straw) Urine Clarity Cloudy H (Clear) Urine pH 5.0 (5.0-8.5) Ur Specific [place] 1.020 (1.002-1.035) Urine Protein Negative (Neg-Trace) mg/dL Urine Glucose (UA) Negative (Negative) mg/dL Urine Ketones Trace H (Negative) mg/dL Urine Occult Blood Moderate H (Negative) Urine Nitrate Negative (Negative) Urine Bilirubin Negative (Negative) Urine Urobilinogen 2.0 H (Less than 2) mg/dL Ur Leukocyte Esterase Negative (Negative) Urine RBC 1 (0-3) /hpf Urine WBC 2 (0-5) /hpf Ur Squamous Epith Cells <1 (0-5) /hpf Amorphous Sediment Few H (None) /hpf Urine Bacteria Rare H (None) /hpf Urine Mucus Many H (Occasional) /lpf Micro UA Comment Culture not ind Ur Microscopic Review Not Reportable Urine Culture Comments Culture not ind Imaging Data Radiologist's impression: Chest X-Ray 05/09/18 11:44 CONCLUSION: Cardiomegaly. Mild basilar atelectasis. Discharge Plan Discharge Disposition Patient Disposition: 30 Still Patient Discharge Condition Condition: Stable Discharge Details Diagnosis: Falls frequently, General physical deterioration, Obesity, Insufficient intake of food and water due to self neglect, Palmira infection of flexural skin, Cellulitis Physicians Team ED Provider: Khoi Francis ED Midlevel Provider: Ariane Johnson Primary Care Provider: Primary Care Gita Maciel Attending Provider: Melissa Herrera Status ED Status: Admitted Observation Patient
[2018-05-09 12:24] LABS: Baso % (Auto) 0.3 % (0.0-2.0); Eos # (Auto) 0.2 th/mm3 (0.0-0.4); Eos % (Auto) 2.3 % (0.0-4.0); Hematocrit 40.4 % (39.0-51.0); Hemoglobin 13.4 gm/dL (13.0-17.0); Lymph # (Auto) 0.8 th/mm3 (1.0-4.8); Lymph % (Auto) 9.7 % (9.0-44.0); Mean Corpuscular HGB Conc 33.1 % (32.0-36.0); Mean Corpuscular Hemoglobin 30.7 pg (27.0-34.0); Mean Corpuscular Volume 92.8 fL (80.0-100.0); Mean Platelet Volume 10.2 fL (7.0-11.0); Mono # (Auto) 0.6 th/mm3 (0.0-0.9); Mono % (Auto) 7.7 % (0.0-8.0); Neut # (Auto) 6.6 th/mm3 (1.8-7.7); Platelet Count 243 th/mm3 (150-450); Red Blood Count 4.36 mil/mm3 (4.50-5.90); Red Cell Distribution Width 14.6 % (11.6-17.2); White Blood Count 8.2 th/mm3 (4.0-11.0)
--- NOTE | 2018-05-09 12:46 | XR ---
EXAM DATE: 05/09/2018 11:44 AM EDT AGE/SEX: 68 years / Male INDICATIONS: Short of breath, unable to walk, legs are weak CLINICAL DATA: This is the patient's initial encounter. Patient reports that signs and symptoms have been present for 1 day and indicates a pain score of 0/10. MEDICAL/SURGICAL HISTORY: Hypertension. Gastroesophageal reflux disease. Crohn's disease. re nal calculi . umbilical hernia repair. COMPARISON: [facility] [place], CHEST 1V SINGLE AP, 05/06/2018. . FINDINGS: Cardiomegaly. Mild basilar airspace disease. No effusion. No pneumothorax. Atherosclerotic aorta. CONCLUSION: Cardiomegaly. Mild basilar atelectasis. Electronically signed by: Guido Hernandez MD 05/09/2018 12:44 PM EDT
[2018-05-09 12:53] LABS: Thyroid Stimulating Hormone 0.108 uIU/mL (0.358-3.740)
[2018-05-09 12:55] LABS: Magnesium 1.9 mg/dL (1.5-2.5)
[2018-05-09 13:17] LABS: Amorphous Sediment,Urine Few /hpf; Bacteria,Urine Rare /hpf; Bilirubin,Urine Negative (Negative); Clarity,Urine Cloudy (Clear); Color,Urine Yellow (Yellw/Straw); Glucose,Urine (UA) Negative (Negative); Leukocyte Esterase,Urine Negative (Negative); Mucus,Urine Many /lpf (Occasional); Nitrite,Urine Negative (Negative); Squamous Epithelial Cell,Urine <1 /hpf (0-5)
[2018-05-09 13:18] LABS: Alanine Aminotransferase 21 U/L (12-78); Albumin 3.1 g/dL (3.4-5.0); Alkaline Phosphatase 85 U/L (45-117); Anion Gap 7 meq/L (5-15); Blood Urea Nitrogen 16 mg/dL (7-18); Calcium 8.5 mg/dL (8.5-10.1); Carbon Dioxide 29.9 meq/L (21.0-32.0); Chloride 105 meq/L (98-107); Creatine Kinase 195 U/L (39-308); Glomerular Filtration Rate 87 mL/min (>89); Glucose,Random 99 mg/dL (74-106); Sodium 142 meq/L (136-145)
[2018-05-09 13:24] LABS: Aspartate Aminotransferase 30 U/L (15-37)
[2018-05-09] MEDS ORDERED: Acetaminophen 325 MG Tablet PO PRN (17:15)
[2018-05-09] MEDS ORDERED: Bisacodyl 10 MG Supp RECTAL PRN (17:15)
[2018-05-09] MEDS: Sod Chloride 0.9% Inj 1,000 ML IV.CONT SCH (17:48)
--- NOTE | 2018-05-09 17:49 | P.HP ---
History of Present Illness Service: Hospitalist Primary Care Physician: No Primary Care Physician Chief Complaint: Generalized weakness. History of Present Illness: Mr. Wilson is a pleasant 68-year-old male with a history of hypertension who presents to the emergency department 2 days after being discharged due to worsening generalized weakness. He lives alone in a trailer since his mother 3 years ago. He was admitted on 05/07/2018 due to generalized weakness. He was found to have dehydration. He was given supportive care and subsequently with improvement he was discharged home with home health. However, patient reports that at home he is not able to take care of himself. When he uses bathroom, he is unable to get up. As a result of his weakness he is unable to get food and other basic items. Patient denies any chest pain, shortness of breath, cough, fever or chills. However he does report difficulty swallowing food especially solid food. He reports a feeling of food getting stuck in the middle of his chest. He reports that about 50-60 pound weight loss in the last 2 months. Patient denies any changes in bowel or bladder habits. Past medical history: Hypertension Past surgical history: No major surgeries. Social history: Patient denies using tobacco, alcohol, illicit drugs. Family history: No family history of Alzheimer's or Parkinson's. - Diagnosis (1) Generalized weakness (2) Palmira infection of flexural skin (3) Physical deconditioning Review of Systems All other systems reviewed negative except as stated in HPI PMFSH - History History Provided By: Patient - Medical History Medical History: Medical History (Last Reviewed 05/09/18 @ 21:05 by Eloise Shin RN) Hypertension - Surgical History Surgical History: Surgical History (Last Reviewed 05/09/18 @ 11:53 by DESIRAE Del Valle) No history of previous surgery - Family History Family History: Family History (Last Reviewed 05/09/18 @ 11:53 by DESIRAE Del Valle) Other Family history normal - Tobacco History Second Hand Smoke Exposure: No Smoking Status: Unknown if ever smoked - Alcohol History How Often Do You Have a Drink Containing Alcohol: Never - Substance Use History Substance History: No History of Abuse - Travel History Recent Travel in the [facility] Within the Last 8 Weeks: No Recent Travel Out of the Country Within the Last 8 Weeks: No - Immunization History Tetanus Immunization: Unable to Assess Hx Influenza Vaccine This Season: Unable to Assess Medications and Allergies Active Medications: Active Medications Acetaminophen (Tylenol) 650 mg PO Q4H PRN PRN Reason: Headache, fever, pain 1-4 Al Hydroxide/Mg Hydroxide (Milk Of Magnesia Liq) 30 ml PO Q12H PRN PRN Reason: Mild Constipation Bisacodyl (Dulcolax Supp) 10 mg RECTAL DAILY PRN PRN Reason: SEVERE CONSITIPATION Sodium Chloride (Ns Inj) 1,000 mls @ 100 mls/hr IV.CONT .Q10H CORINNE Stop: 05/11/18 17:14 Last Admin: 05/09/18 17:48 Dose: 100 mls/hr Fluconazole (Diflucan 100 Mg Premix Bag) 50 mls @ 50 mls/hr IV.SIG ONCE ONE Stop: 05/09/18 18:30 Lactulose (Lactulose Liq) 30 ml PO DAILY PRN PRN Reason: SEVERE CONSITIPATION Ondansetron HCl (Zofran Inj) 4 mg IV.PUSH Q6H PRN PRN Reason: NAUSEA OR VOMITING Sennosides (Senokot) 17.2 mg PO Q12H PRN PRN Reason: Moderate Constipation Sodium Chloride (Ns Flush) 2 ml IV.FLUSH PRN PRN PRN Reason: FLUSH AFTER USING IV ACCESS Allergies Allergy/AdvReac Type Severity Reaction Status Date / Time Iodinated Contrast- Oral and Allergy Mild Nausea/Vomi Verified 03/26/18 11:28 IV Dye ting Home Medications Medication Instructions Recorded Confirmed Type aspirin [Aspir-81] 81 mg PO DAILY 05/06/18 05/09/18 History Exam Vital signs: Vital Signs 05/09/18 11:31 05/09/18 11:34 Temperature 98.5 F Pulse Rate 80 77 Respiratory Rate 18 18 Blood Pressure 146/65 H 141/88 H Pulse Oximetry 96 96 Intake & Output 05/08/18 05/09/18 05/09/18 18:59 06:59 18:59 Weight 131.542 kg Narrative: GENERAL: This is a well-nourished, well-developed patient, in no apparent distress. SKIN: No rashes, ecchymoses or lesions. Warm and dry. There are small circular brown color plaques on his lower ext, significant erythema with white plaques below his bilateral breast area. HEAD: Atraumatic. Normocephalic. No temporal or scalp tenderness. EYES: Pupils equal round and reactive. No injection or drainage. ENT: Nose without bleeding, purulent drainage or septal hematoma. Airway patent. NECK: Trachea midline. No lymphadenopathy. Supple, nontender, no meningeal signs. CARDIOVASCULAR: Regular rate and rhythm without murmurs, gallops, or rubs. No JVD. RESPIRATORY: Clear to auscultation. Breath sounds equal bilaterally. No wheezes , rales, or rhonchi. GASTROINTESTINAL: Abdomen soft, non-tender, nondistended. No guarding. MUSCULOSKELETAL: Extremities without clubbing, cyanosis, or edema. NEUROLOGICAL: Awake and alert. Cranial nerves II through XII intact. No focal neurological deficits. Normal speech. Results - Labs CBC & Chem 7: 05/09/18 12:00 05/09/18 12:00 Labs: Laboratory Results - last 24 hr 05/09/18 05/09/18 05/09/18 12:00 12:00 12:00 WBC 8.2 RBC 4.36 L Hgb 13.4 Hct 40.4 MCV 92.8 MCH 30.7 MCHC 33.1 RDW 14.6 Plt Count 243 MPV 10.2 Neut % (Auto) 80.0 H Lymph % (Auto) 9.7 [place] % (Auto) 7.7 Eos % (Auto) 2.3 Baso % (Auto) 0.3 Neut # (Auto) 6.6 Lymph # (Auto) 0.8 L [place] # (Auto) 0.6 Eos # (Auto) 0.2 Baso # (Auto) 0.0 WBC Differential . Differential Comment Auto diff final Sodium 142 Potassium 4.0 Chloride 105 Carbon Dioxide 29.9 Anion Gap 7 BUN 16 Creatinine 0.87 Estimated GFR 87 L Random Glucose 99 Calcium 8.5 Magnesium 1.9 Total Bilirubin 0.5 AST 30 ALT 21 Alkaline Phosphatase 85 Total Creatine Kinase 195 Troponin I Less than 0.02 L Total Protein 7.0 Albumin 3.1 L TSH 0.108 L Urine Color Urine Clarity Urine pH Ur Specific [place] Urine Protein Urine Glucose (UA) Urine Ketones Urine Occult Blood Urine Nitrate Urine Bilirubin Urine Urobilinogen Ur Leukocyte Esterase Urine RBC Urine WBC Ur Squamous Epith Cells Amorphous Sediment Urine Bacteria Urine Mucus Micro UA Comment Ur Microscopic Review Urine Culture Comments 05/09/18 12:15 WBC RBC Hgb Hct MCV MCH MCHC RDW Plt Count MPV Neut % (Auto) Lymph % (Auto) [place] % (Auto) Eos % (Auto) Baso % (Auto) Neut # (Auto) Lymph # (Auto) [place] # (Auto) Eos # (Auto) Baso # (Auto) WBC Differential Differential Comment Sodium Potassium Chloride Carbon Dioxide Anion Gap BUN Creatinine Estimated GFR Random Glucose Calcium Magnesium Total Bilirubin AST ALT Alkaline Phosphatase Total Creatine Kinase Troponin I Total Protein Albumin TSH Urine Color Yellow Urine Clarity Cloudy H Urine pH 5.0 Ur Specific [place] 1.020 Urine Protein Negative Urine Glucose (UA) Negative Urine Ketones Trace H Urine Occult Blood Moderate H Urine Nitrate Negative Urine Bilirubin Negative Urine Urobilinogen 2.0 H Ur Leukocyte Esterase Negative Urine RBC 1 Urine WBC 2 Ur Squamous Epith Cells <1 Amorphous Sediment Few H Urine Bacteria Rare H Urine Mucus Many H Micro UA Comment Culture not ind Ur Microscopic Review Not Reportable Urine Culture Comments Culture not ind - Imaging Impressions Chest X-Ray 05/09/18 11:44 CONCLUSION: Cardiomegaly. Mild basilar atelectasis. Caprini VTE Risk Assessment Caprini VTE Risk Assessment: No/Low Risk (score <= 1) Caprini Risk Assessment Model: Point Value = 1 Point Value = 2 Point Value = 3 Point Value = 5 Age 41-60 Minor surgery BMI > 25 kg/m2 Swollen legs Varicose veins or History of unexplained or recurrent spontaneous Oral contraceptives or hormone replacement Sepsis (< 1 month) Serious lung disease, including pneumonia (< 1 month) Abnormal pulmonary function Acute myocardial infarction Congestive heart failure (< 1 month) History of inflammatory bowel disease Medical patient at bed rest Age 61-74 Arthroscopic surgery Major open surgery (> 45 min) Laparoscopic surgery (> 45 min) Malignancy Confined to bed (> 72 hours) Immobilizing plaster cast Central venous access Age >= 75 History of VTE Family history of VTE Factor V Leiden Prothrombin [id number] Lupus anticoagulant Anticardiolipin antibodies Elevated serum homocysteine Heparin-induced thrombocytopenia Other congenital or acquired thrombophilia Stroke (< 1 month) Elective arthroplasty Hip, pelvis, or leg fracture Acute spinal cord injury (< 1 month) Prophylaxis Regimen: Total Risk Factor Score Risk Level Prophylaxis Regimen 0-1 Low Early ambulation 2 Moderate Order ONE of the following: *Sequential Compression Device (SCD) *Heparin 5000 units SQ BID 3-4 Higher Order ONE of the following medications: *Heparin 5000 units SQ TID *Enoxaparin/Lovenox 40 mg SQ daily (WT < 150 kg, CrCl > 30 mL/min) *Enoxaparin/Lovenox 30 mg SQ daily (WT < 150 kg, CrCl > 10-29 mL/min) *Enoxaparin/Lovenox 30 mg SQ BID (WT < 150 kg, CrCl > 30 mL/min) AND/OR *Sequential Compression Device (SCD) 5 or more Highest Order ONE of the following medications: *Heparin 5000 units SQ TID (Preferred with Epidurals) *Enoxaparin/Lovenox 40 mg SQ daily (WT < 150 kg, CrCl > 30 mL/min) *Enoxaparin/Lovenox 30 mg SQ daily (WT < 150 kg, CrCl > 10-29 mL/min) *Enoxaparin/Lovenox 30 mg SQ BID (WT < 150 kg, CrCl > 30 mL/min) AND *Sequential Compression Device (SCD) Assessment and Plan - Assessment (1) Generalized weakness Code(s): R53.1 - Weakness Status: Acute (2) Palmira infection of flexural skin Code(s): B37.2 - Candidiasis of skin and nail Status: Acute (3) Physical deconditioning Code(s): R53.81 - Other malaise Status: Acute - Plan Mr. Wilson is a pleasant 68-year-old male with a history of hypertension who presents to the emergency department due to generalized weakness, dysphagia as well as weight loss. Patient reports worsening weakness in the last 2 months. He has had recent 2 other admissions related to generalized weakness. Generalized weakness -Patient would likely need long-term facility rehab or inpatient rehab -will consult PT and OT. Palmira skin infection -Bilateral breast area (underneath breast) with significant erythema with white plaques. -Patient was started on Diflucan IV due to persistent symptoms. -Will start patient on Ketoconazole 2% cream BID X 3 weeks. -Will need to keep this area dry/clean. Dysphagia with weight loss -Patient reports 50-60 pound weight loss in the last 2 months. -We will ask for GI consultation with regards to dysphagia. Patient may need EGD. -Regular but mechanical soft diet with chopped meat. -Speech therapy consult for diet recommendations. Full code. Lovenox.
[2018-05-09] MEDS ORDERED: Enoxaparin Inj 40 MG/0.4 ML Syringe SQ SCH (18:15)
[2018-05-09] MEDS: Enoxaparin Inj 40 MG/0.4 ML Syringe SQ SCH (21:54)
[2018-05-10] MEDS: Sod Chloride 0.9% Inj 1,000 ML IV.CONT SCH ×3 (05:23→16:18)
--- NOTE | 2018-05-10 08:44 | P.CONGI ---
History of Present Illness Consult date: 05/10/18 Consult reason: Dysphagia Chief complaint: Generalized Weakness History of Present Illness: This is a 68-year-old male who presented to the hospital yesterday with complaints of weakness, patient states that his air conditioning broke at home and his room was 110 degrees which led him to be extremely weak and unable to get out of bed. Our service has been consulted to evaluate patient for reports of dysphagia and unintentional weight loss of 50-60 pounds over the past 2 months. When asked about his dysphagia, patient states that the only time he has issues swallowing is when he is unable to sit up straight and feels that he is tilted. Denies food getting stuck, odynophagia, regurgitation of food with meals, coughing or shortness of breath with meals. Patient denies any heartburn , nausea, vomiting, abdominal pain. States that he has not had a bowel movement in a week but reports this is secondary to being unable to make it to the kitchen to eat anything. Has been passing flatus. States that he has noticed a little bit of a decreased appetite with early satiety but has related this to not eating much. Patient also reports when he gets nervous that he has diarrhea, states that he has Crohn's disease, but has never had a colonoscopy and denies family history of this. Denies hematochezia or melena. When addressed with the possibility of EGD and colonoscopy patient states that he will never undergo these procedures because he had a friend who from this. Denies EtOH and smoking. Takes ibuprofen rarely. <Tiffanie Britton - Last Filed: 05/10/18 08:34> Review of Systems Constitutional: Reports fatigue, Reports weight loss Gastrointestinal: Reports constipation, Denies abdominal pain, Denies black, tarry stools, Denies bloating, Denies bright, red blood in stools, Denies heartburn, Denies nausea, Denies vomiting <Tiffanie Britton - Last Filed: 05/10/18 08:34> PMFSH - History History Provided By: Patient - Medical History Medical History: Medical History (Last Reviewed 05/09/18 @ 21:05 by Eloise Shin RN) Hypertension - Surgical History Surgical History: Surgical History (Last Reviewed 05/09/18 @ 11:53 by DESIRAE Del Valle) No history of previous surgery - Family History Family History: Family History (Last Reviewed 05/09/18 @ 11:53 by DESIRAE Del Valle) Other Family history normal - Tobacco History Second Hand Smoke Exposure: No Smoking Status: Unknown if ever smoked - Alcohol History How Often Do You Have a Drink Containing Alcohol: Never - Substance Use History Substance History: No History of Abuse - Travel History Recent Travel in the [place] Within the Last 8 Weeks: No Recent Travel Out of the Country Within the Last 8 Weeks: No - Immunization History Tetanus Immunization: Unable to Assess Hx Influenza Vaccine This Season: Unable to Assess <Tiffanie Britton - Last Filed: 05/10/18 08:34> - Medical History Medical History: Medical History (Last Reviewed 05/09/18 @ 21:05 by Eloise Shin RN) Hypertension - Surgical History Surgical History: Surgical History (Last Reviewed 05/09/18 @ 11:53 by DESIRAE Del Valle) No history of previous surgery - Family History Family History: Family History (Last Reviewed 05/09/18 @ 11:53 by DESIRAE Del Valle) Other Family history normal <Vargas Sprague - Last Filed: 05/10/18 11:46> Medications and Allergies Active Medications: Active Medications Acetaminophen (Tylenol) 650 mg PO Q4H PRN PRN Reason: Headache, fever, pain 1-4 Al Hydroxide/Mg Hydroxide (Milk Of Magnesia Liq) 30 ml PO Q12H PRN PRN Reason: Mild Constipation Bisacodyl (Dulcolax Supp) 10 mg RECTAL DAILY PRN PRN Reason: SEVERE CONSITIPATION Enoxaparin Sodium (Lovenox Inj) 40 mg SQ Q24H [facility] Last Admin: 05/09/18 21:54 Dose: Not Given Sodium Chloride (Ns Inj) 1,000 mls @ 100 mls/hr IV.CONT .Q10H [facility] Stop: 05/11/18 17:14 Last Admin: 05/10/18 05:23 Dose: 100 mls/hr Ketoconazole (Nizoral 25 Cream) 1 applicatio TOPICAL BID [facility] Stop: 05/31/18 08:59 Lactulose (Lactulose Liq) 30 ml PO DAILY PRN PRN Reason: SEVERE CONSITIPATION Ondansetron HCl (Zofran Inj) 4 mg IV.PUSH Q6H PRN PRN Reason: NAUSEA OR VOMITING Sennosides (Senokot) 17.2 mg PO Q12H PRN PRN Reason: Moderate Constipation Sodium Chloride (Ns Flush) 2 ml IV.FLUSH PRN PRN PRN Reason: FLUSH AFTER USING IV ACCESS <Tiffanie Britton - Last Filed: 05/10/18 08:34> Active Medications: Active Medications Acetaminophen (Tylenol) 650 mg PO Q4H PRN PRN Reason: Headache, fever, pain 1-4 Al Hydroxide/Mg Hydroxide (Milk Of Magnesia Liq) 30 ml PO Q12H PRN PRN Reason: Mild Constipation Bisacodyl (Dulcolax Supp) 10 mg RECTAL DAILY PRN PRN Reason: SEVERE CONSITIPATION Enoxaparin Sodium (Lovenox Inj) 40 mg SQ Q24H [facility] Last Admin: 05/09/18 21:54 Dose: Not Given Sodium Chloride (Ns Inj) 1,000 mls @ 100 mls/hr IV.CONT .Q10H [facility] Stop: 05/11/18 17:14 Last Admin: 05/10/18 05:23 Dose: 100 mls/hr Ketoconazole (Nizoral 25 Cream) 1 applicatio TOPICAL BID [facility] Stop: 05/31/18 08:59 Last Admin: 05/10/18 10:04 Dose: 1 applicatio Lactulose (Lactulose Liq) 30 ml PO DAILY PRN PRN Reason: SEVERE CONSITIPATION Ondansetron HCl (Zofran Inj) 4 mg IV.PUSH Q6H PRN PRN Reason: NAUSEA OR VOMITING Sennosides (Senokot) 17.2 mg PO Q12H PRN PRN Reason: Moderate Constipation Sodium Chloride (Ns Flush) 2 ml IV.FLUSH PRN PRN PRN Reason: FLUSH AFTER USING IV ACCESS <Vargas Sprague - Last Filed: 05/10/18 11:46> Allergies Allergy/AdvReac Type Severity Reaction Status Date / Time Iodinated Contrast- Oral and Allergy Mild Nausea/Vomi Verified 03/26/18 11:28 IV Dye ting Home Medications Medication Instructions Recorded Confirmed Type aspirin [Aspir-81] 81 mg PO DAILY 05/06/18 05/09/18 History Exam Vital signs: Vital Signs 05/09/18 11:31 05/09/18 11:34 05/09/18 17:15 Temperature 98.5 F Pulse Rate 80 77 78 Respiratory Rate 18 18 18 Blood Pressure 146/65 H 141/88 H 148/86 H Pulse Oximetry 96 96 96 05/09/18 20:00 05/09/18 20:35 05/09/18 23:34 Temperature 97.5 F L 98.1 F Pulse Rate 92 H 83 78 Respiratory Rate 18 18 18 Blood Pressure 142/64 H 147/80 H 154/67 H Pulse Oximetry 95 97 94 L 05/10/18 04:00 Temperature 98.2 F Pulse Rate 77 Respiratory Rate 18 Blood Pressure 127/63 Pulse Oximetry 94 L Intake & Output 05/09/18 05/10/18 05/10/18 18:59 06:59 18:59 Intake Total 1410 / 1410 Output Total 150 / 150 Balance 1260 / 1260 Weight 131.542 kg 133.6 kg Intake: IV 1050 / 1050 NS Inj 1,000 ML @ 100 mls/hr IV 1000 / 1000 .CONT .Q10H [facility] Rx#:[id number] Diflucan 100 mg Premix Bag 50 50 / 50 ML @ 50 mls/hr IV.SIG ONCE ONE Rx#:[id number] Oral 360 / 360 Output: Urine 150 / 150 Other: # Bowel Movements 0 Weight On Admission 134 kg - Constitutional no acute distress, obese - Routine HEENT Exam Head: Present: normocephalic, atraumatic - Routine Respiratory Exam Absent: accessory muscle use - Routine Abdominal Exam Present: soft, normoactive bowel sounds. Absent: tenderness - Routine Skin Exam Present: dry, warm - Routine Neurological Exam Present: alert, oriented X3 <Tiffanie Britton - Last Filed: 05/10/18 08:34> Vital signs: Vital Signs 05/09/18 17:15 05/09/18 20:00 05/09/18 20:35 Temperature 97.5 F L Pulse Rate 78 92 H 83 Respiratory Rate 18 18 18 Blood Pressure 148/86 H 142/64 H 147/80 H Pulse Oximetry 96 95 97 05/09/18 23:34 05/10/18 04:00 05/10/18 08:00 Temperature 98.1 F 98.2 F 97.4 F L Pulse Rate 78 77 80 Respiratory Rate 18 18 20 Blood Pressure 154/67 H 127/63 177/95 H Pulse Oximetry 94 L 94 L 96 Intake & Output 05/09/18 05/10/18 05/10/18 18:59 06:59 18:59 Intake Total 1410 / 1410 Output Total 150 / 150 Balance 1260 / 1260 Weight 131.542 kg 133.6 kg Intake: IV 1050 / 1050 NS Inj 1,000 ML @ 100 mls/hr IV 1000 / 1000 .CONT .Q10H [facility] Rx#:[id number] Diflucan 100 mg Premix Bag 50 50 / 50 ML @ 50 mls/hr IV.SIG ONCE ONE Rx#:[id number] Oral 360 / 360 Output: Urine 150 / 150 Other: # Bowel Movements 0 Weight On Admission 134 kg <Vargas Sprague - Last Filed: 05/10/18 11:46> Results - Labs CBC & Chem 7: 05/09/18 12:00 05/09/18 12:00 Labs: Laboratory Results - last 24 hr 05/09/18 05/09/18 05/09/18 12:00 12:00 12:00 WBC 8.2 RBC 4.36 L Hgb 13.4 Hct 40.4 MCV 92.8 MCH 30.7 MCHC 33.1 RDW 14.6 Plt Count 243 MPV 10.2 Neut % (Auto) 80.0 H Lymph % (Auto) 9.7 [place] % (Auto) 7.7 Eos % (Auto) 2.3 Baso % (Auto) 0.3 Neut # (Auto) 6.6 Lymph # (Auto) 0.8 L [place] # (Auto) 0.6 Eos # (Auto) 0.2 Baso # (Auto) 0.0 WBC Differential . Differential Comment Auto diff final Sodium 142 Potassium 4.0 Chloride 105 Carbon Dioxide 29.9 Anion Gap 7 BUN 16 Creatinine 0.87 Estimated GFR 87 L Random Glucose 99 Calcium 8.5 Magnesium 1.9 Total Bilirubin 0.5 AST 30 ALT 21 Alkaline Phosphatase 85 Total Creatine Kinase 195 Troponin I Less than 0.02 L Total Protein 7.0 Albumin 3.1 L TSH 0.108 L Urine Color Urine Clarity Urine pH Ur Specific [place] Urine Protein Urine Glucose (UA) Urine Ketones Urine Occult Blood Urine Nitrate Urine Bilirubin Urine Urobilinogen Ur Leukocyte Esterase Urine RBC Urine WBC Ur Squamous Epith Cells Amorphous Sediment Urine Bacteria Urine Mucus Micro UA Comment Ur Microscopic Review Urine Culture Comments 05/09/18 12:15 WBC RBC Hgb Hct MCV MCH MCHC RDW Plt Count MPV Neut % (Auto) Lymph % (Auto) [place] % (Auto) Eos % (Auto) Baso % (Auto) Neut # (Auto) Lymph # (Auto) [place] # (Auto) Eos # (Auto) Baso # (Auto) WBC Differential Differential Comment Sodium Potassium Chloride Carbon Dioxide Anion Gap BUN Creatinine Estimated GFR Random Glucose Calcium Magnesium Total Bilirubin AST ALT Alkaline Phosphatase Total Creatine Kinase Troponin I Total Protein Albumin TSH Urine Color Yellow Urine Clarity Cloudy H Urine pH 5.0 Ur Specific [place] 1.020 Urine Protein Negative Urine Glucose (UA) Negative Urine Ketones Trace H Urine Occult Blood Moderate H Urine Nitrate Negative Urine Bilirubin Negative Urine Urobilinogen 2.0 H Ur Leukocyte Esterase Negative Urine RBC 1 Urine WBC 2 Ur Squamous Epith Cells <1 Amorphous Sediment Few H Urine Bacteria Rare H Urine Mucus Many H Micro UA Comment Culture not ind Ur Microscopic Review Not Reportable Urine Culture Comments Culture not ind - Imaging Impressions Chest X-Ray 05/09/18 11:44 CONCLUSION: Cardiomegaly. Mild basilar atelectasis. <Tiffanie Britton - Last Filed: 05/10/18 08:34> - Labs CBC & Chem 7: 05/09/18 12:00 05/09/18 12:00 Labs: Laboratory Results - last 24 hr 05/09/18 05/09/18 05/09/18 12:00 12:00 12:00 WBC 8.2 RBC 4.36 L Hgb 13.4 Hct 40.4 MCV 92.8 MCH 30.7 MCHC 33.1 RDW 14.6 Plt Count 243 MPV 10.2 Neut % (Auto) 80.0 H Lymph % (Auto) 9.7 [place] % (Auto) 7.7 Eos % (Auto) 2.3 Baso % (Auto) 0.3 Neut # (Auto) 6.6 Lymph # (Auto) 0.8 L [place] # (Auto) 0.6 Eos # (Auto) 0.2 Baso # (Auto) 0.0 WBC Differential . Differential Comment Auto diff final Sodium 142 Potassium 4.0 Chloride 105 Carbon Dioxide 29.9 Anion Gap 7 BUN 16 Creatinine 0.87 Estimated GFR 87 L Random Glucose 99 Calcium 8.5 Magnesium 1.9 Total Bilirubin 0.5 AST 30 ALT 21 Alkaline Phosphatase 85 Total Creatine Kinase 195 Troponin I Less than 0.02 L Total Protein 7.0 Albumin 3.1 L TSH 0.108 L Urine Color Urine Clarity Urine pH Ur Specific [place] Urine Protein Urine Glucose (UA) Urine Ketones Urine Occult Blood Urine Nitrate Urine Bilirubin Urine Urobilinogen Ur Leukocyte Esterase Urine RBC Urine WBC Ur Squamous Epith Cells Amorphous Sediment Urine Bacteria Urine Mucus Micro UA Comment Ur Microscopic Review Urine Culture Comments 05/09/18 12:15 WBC RBC Hgb Hct MCV MCH MCHC RDW Plt Count MPV Neut % (Auto) Lymph % (Auto) [place] % (Auto) Eos % (Auto) Baso % (Auto) Neut # (Auto) Lymph # (Auto) [place] # (Auto) Eos # (Auto) Baso # (Auto) WBC Differential Differential Comment Sodium Potassium Chloride Carbon Dioxide Anion Gap BUN Creatinine Estimated GFR Random Glucose Calcium Magnesium Total Bilirubin AST ALT Alkaline Phosphatase Total Creatine Kinase Troponin I Total Protein Albumin TSH Urine Color Yellow Urine Clarity Cloudy H Urine pH 5.0 Ur Specific [place] 1.020 Urine Protein Negative Urine Glucose (UA) Negative Urine Ketones Trace H Urine Occult Blood Moderate H Urine Nitrate Negative Urine Bilirubin Negative Urine Urobilinogen 2.0 H Ur Leukocyte Esterase Negative Urine RBC 1 Urine WBC 2 Ur Squamous Epith Cells <1 Amorphous Sediment Few H Urine Bacteria Rare H Urine Mucus Many H Micro UA Comment Culture not ind Ur Microscopic Review Not Reportable Urine Culture Comments Culture not ind - Imaging Impressions Chest X-Ray 05/09/18 11:44 CONCLUSION: Cardiomegaly. Mild basilar atelectasis. <Vargas Sprague - Last Filed: 05/10/18 11:46> Assessment and Plan - Plan Assessment: - Reports of dysphagia- Patient states that the only time he has issues swallowing is when he is unable to sit up straight and feels that he is tilted. Denies food getting stuck, odynophagia, regurgitation of food with meals, coughing or shortness of breath with meals. Patient denies any heartburn, nausea, vomiting, abdominal pain. States that he has noticed a little bit of a decreased appetite with early satiety but has related this to not eating much. - Constipation- States that he has not had a bowel movement in a week but reports this is secondary to being unable to make it to the kitchen to eat anything. Has been passing flatus. Patient also reports when he gets nervous that he has diarrhea, states that he has Crohn's disease, but has never had a colonoscopy and denies family history of this. Denies hematochezia or melena. - Unintentional weight loss- 50-60 lbs over 2 months- states this is because he has been too weak to make it to the kitchen to prepare food. Has never had EGD or colonoscopy Discussed EGD and colonoscopy with pt and he states that he will not undergo these procedures due to a friend passing away from complications of endoscopic procedures. Discussed risks and benefits and he is persistent he does not wish for EGD OR colonoscopy Plan: CT abdomen/pelvis W contrast Bowel regimen based on findings MEDIA STRATEGIST eval and treat If no obstruction on CT OK to start on diet Refusing EGD/colonoscopy Further recommendations to follow This patient has been seen and examined by myself and Dr. Sprague and this note is written on his behalf <Tiffanie Britton - Last Filed: 05/10/18 08:34> - Plan Seen and examined with [employer], patient wants to eat. Dose not want any henry. Very irritable with exam. CT with po contrast ordered. discussed with Dr Dsouza. Thank you The exam, history, and the medical decision-making described in the above note were completed with the assistance of the mid-level provider. I reviewed and agree with the findings presented. I attest that I had a [id number] encounter with the patient on the same day, and personally performed and documented my assessment and findings in the medical record. <Vargas Sprague - Last Filed: 05/10/18 11:46>
--- NOTE | 2018-05-10 11:04 | P.PNIM ---
Physical Exam Vital signs: Vital Signs 05/09/18 11:31 05/09/18 11:34 05/09/18 17:15 Temperature 98.5 F Pulse Rate 80 77 78 Respiratory Rate 18 18 18 Blood Pressure 146/65 H 141/88 H 148/86 H Pulse Oximetry 96 96 96 05/09/18 20:00 05/09/18 20:35 05/09/18 23:34 Temperature 97.5 F L 98.1 F Pulse Rate 92 H 83 78 Respiratory Rate 18 18 18 Blood Pressure 142/64 H 147/80 H 154/67 H Pulse Oximetry 95 97 94 L 05/10/18 04:00 05/10/18 08:00 Temperature 98.2 F 97.4 F L Pulse Rate 77 80 Respiratory Rate 18 20 Blood Pressure 127/63 177/95 H Pulse Oximetry 94 L 96 Intake & Output 05/09/18 05/10/18 05/10/18 18:59 06:59 18:59 Intake Total 1410 / 1410 Output Total 150 / 150 Balance 1260 / 1260 Weight 131.542 kg 133.6 kg Intake: IV 1050 / 1050 NS Inj 1,000 ML @ 100 mls/hr IV 1000 / 1000 .CONT .Q10H [facility] Rx#:[id number] Diflucan 100 mg Premix Bag 50 50 / 50 ML @ 50 mls/hr IV.SIG ONCE ONE Rx#:[id number] Oral 360 / 360 Output: Urine 150 / 150 Other: # Bowel Movements 0 Weight On Admission 134 kg Narrative: GENERAL: Morbidly obese male. Upset SKIN: There are small circular brown color plaques on his lower ext, significant erythema with white plaques below his bilateral breast area. CARDIOVASCULAR: Regular rate and rhythm without murmurs, gallops, or rubs. No JVD. RESPIRATORY: Clear to auscultation. Breath sounds equal bilaterally. No wheezes , rales, or rhonchi. GASTROINTESTINAL: Abdomen obese, soft, non-tender, nondistended. No guarding. NEUROLOGICAL: Awake and alert. Normal speech. PSYCH: Irritable mood Results - Labs CBC & Chem 7: 05/09/18 12:00 05/09/18 12:00 Laboratory Results - last 24 hr 05/09/18 05/09/18 05/09/18 12:00 12:00 12:00 WBC 8.2 RBC 4.36 L Hgb 13.4 Hct 40.4 MCV 92.8 MCH 30.7 MCHC 33.1 RDW 14.6 Plt Count 243 MPV 10.2 Neut % (Auto) 80.0 H Lymph % (Auto) 9.7 [place] % (Auto) 7.7 Eos % (Auto) 2.3 Baso % (Auto) 0.3 Neut # (Auto) 6.6 Lymph # (Auto) 0.8 L [place] # (Auto) 0.6 Eos # (Auto) 0.2 Baso # (Auto) 0.0 WBC Differential . Differential Comment Auto diff final Sodium 142 Potassium 4.0 Chloride 105 Carbon Dioxide 29.9 Anion Gap 7 BUN 16 Creatinine 0.87 Estimated GFR 87 L Random Glucose 99 Calcium 8.5 Magnesium 1.9 Total Bilirubin 0.5 AST 30 ALT 21 Alkaline Phosphatase 85 Total Creatine Kinase 195 Troponin I Less than 0.02 L Total Protein 7.0 Albumin 3.1 L TSH 0.108 L Urine Color Urine Clarity Urine pH Ur Specific [place] Urine Protein Urine Glucose (UA) Urine Ketones Urine Occult Blood Urine Nitrate Urine Bilirubin Urine Urobilinogen Ur Leukocyte Esterase Urine RBC Urine WBC Ur Squamous Epith Cells Amorphous Sediment Urine Bacteria Urine Mucus Micro UA Comment Ur Microscopic Review Urine Culture Comments 05/09/18 12:15 WBC RBC Hgb Hct MCV MCH MCHC RDW Plt Count MPV Neut % (Auto) Lymph % (Auto) [place] % (Auto) Eos % (Auto) Baso % (Auto) Neut # (Auto) Lymph # (Auto) [place] # (Auto) Eos # (Auto) Baso # (Auto) WBC Differential Differential Comment Sodium Potassium Chloride Carbon Dioxide Anion Gap BUN Creatinine Estimated GFR Random Glucose Calcium Magnesium Total Bilirubin AST ALT Alkaline Phosphatase Total Creatine Kinase Troponin I Total Protein Albumin TSH Urine Color Yellow Urine Clarity Cloudy H Urine pH 5.0 Ur Specific [place] 1.020 Urine Protein Negative Urine Glucose (UA) Negative Urine Ketones Trace H Urine Occult Blood Moderate H Urine Nitrate Negative Urine Bilirubin Negative Urine Urobilinogen 2.0 H Ur Leukocyte Esterase Negative Urine RBC 1 Urine WBC 2 Ur Squamous Epith Cells <1 Amorphous Sediment Few H Urine Bacteria Rare H Urine Mucus Many H Micro UA Comment Culture not ind Ur Microscopic Review Not Reportable Urine Culture Comments Culture not ind - Imaging Impressions Chest X-Ray 05/09/18 11:44 CONCLUSION: Cardiomegaly. Mild basilar atelectasis. Assessment and Plan - Assessment (1) Generalized weakness Code(s): R53.1 - Weakness Status: Acute (2) [place] infection of flexural skin Code(s): B37.2 - Candidiasis of skin and nail Status: Acute (3) Physical deconditioning Code(s): R53.81 - Other malaise Status: Acute - Plan 68-year-old male with a history of hypertension who presents to the emergency department due to generalized weakness, dysphagia as well as weight loss. Patient reports worsening weakness in the last 2 months. He has had recent 2 other admissions related to generalized weakness. Generalized weakness -Patient need nursing home facility rehab or inpatient rehab - PT and OT consult. [place] skin infection -Bilateral underneath breast area with significant erythema with white plaques. -Patient was started on Diflucan IV due to persistent symptoms. Plan to change to oral on discharge -Will start patient on Ketoconazole 2% cream BID X 3 weeks. -Will need to keep this area dry/clean. Dysphagia with weight loss: Patient states he has no problem swallowing and that he was weak and couldn't get to the kitchen -He is refusing any GI workup. Appreciate GI consult - Start him on a diet. Monitor. Full code. Lovenox.
--- NOTE | 2018-05-10 12:34 | XR ---
EXAM DATE: 05/10/2018 12:00 AM EDT AGE/SEX: 68 years / Male INDICATIONS: Constipation CLINICAL DATA: This is the patient's initial encounter. Patient reports that signs and symptoms have been present for 4 - 6 days and indicates a pain score of 0/10. MEDICAL/SURGICAL HISTORY: Hypertension. Gastroesophageal reflux disease. Crohn's disease. Umb ilical hernia repair. COMPARISON: [facility], CT ABDOMEN & PELVIS W/O CONTRAST, 04/19/2016. . FINDINGS: 3 frontal supine views of the abdomen demonstrate air within bowel in a nonobstructive pattern. Ther e is an average amount of stool throughout the colon. No concerning calcifications are seen and no or ganomegaly is identified. Visualized lung bases are clear. There are degenerative changes throughout the lumbar spine. No acute osseous abnormality is seen. CONCLUSION: No acute abdominal abnormality is identified. There is a normal amount of stool visualized throughout the colon. Electronically signed by: Patricio Snyder MD 05/10/2018 12:33 PM EDT
--- NOTE | 2018-05-10 15:26 | ECG ---
Date Performed: 05/09/2018 Time Performed: 11:36:04 PTAGE: 68 years EKG: Sinus rhythm WITH SINUS ARRHYTHMIA VOLTAGE CRITERIA FOR LVH ABNORMAL ECG Since the PREVIOUS TRACING , no significant change noted PREVIOUS TRACIN05/06/2018 18.44 DOCTOR: Bety Blevins Interpretating Date/Time 05/10/2018 15:18:51
[2018-05-10] MEDS: Enoxaparin Inj 40 MG/0.4 ML Syringe SQ SCH (20:16)
[2018-05-11] MEDS: Sod Chloride 0.9% Inj 1,000 ML IV.CONT SCH ×4 (01:21→12:57)
--- NOTE | 2018-05-11 11:30 | P.PNIM ---
Subjective Interval history: Patient reports he is feeling better. He is eating well. He is looking forward to rehab. Physical Exam Vital signs: Vital Signs 05/10/18 12:00 05/10/18 16:00 05/10/18 20:00 Temperature 97.6 F 98.1 F 97.4 F L Pulse Rate 90 81 94 H Respiratory Rate 21 22 20 Blood Pressure 116/82 155/82 H 156/81 H Pulse Oximetry 98 98 96 05/11/18 00:00 05/11/18 04:00 05/11/18 08:00 Temperature 98.0 F 98.2 F 97.1 F L Pulse Rate 68 78 77 Respiratory Rate 17 17 23 Blood Pressure 144/73 H 158/77 H 172/79 H Pulse Oximetry 96 95 94 L Intake & Output 05/10/18 05/11/18 05/11/18 18:59 06:59 18:59 Intake Total 1960 / 1960 1400 / 1400 Output Total 1400 / 1400 550 / 550 Balance 560 / 560 850 / 850 Weight 134.2 kg Intake: IV 1000 / 1000 1000 / 1000 NS Inj 1,000 ML @ 100 mls/hr IV 1000 / 1000 1000 / 1000 .CONT .Q10H [facility] Rx#:[id number] Oral 960 / 960 400 / 400 Output: Urine 1400 / 1400 550 / 550 Other: Date of Last Bowel Movement 05/10/18 05/10/18 # Bowel Movements 2 Narrative: GENERAL: Morbidly obese male. SKIN: There are small circular brown color plaques on his lower ext, significant erythema with white plaques below his bilateral breast area. CARDIOVASCULAR: Regular rate and rhythm without murmurs, gallops, or rubs. No JVD. RESPIRATORY: Clear to auscultation. Breath sounds equal bilaterally. No wheezes , rales, or rhonchi. GASTROINTESTINAL: Abdomen obese, soft, non-tender, nondistended. No guarding. NEUROLOGICAL: Awake and alert. Normal speech. Generalized weakness but no focal deficits. Results - Labs CBC & Chem 7: 05/09/18 12:00 05/09/18 12:00 - Imaging Impressions Abdomen X-Ray 05/10/18 00:00 CONCLUSION: No acute abdominal abnormality is identified. There is a normal amount of stool visualized throughout the colon. Assessment and Plan - Assessment (1) Generalized weakness Code(s): R53.1 - Weakness Status: Acute (2) Palmira infection of flexural skin Code(s): B37.2 - Candidiasis of skin and nail Status: Acute (3) Physical deconditioning Code(s): R53.81 - Other malaise Status: Acute - Plan 68-year-old male with a history of hypertension who presents to the emergency department due to generalized weakness, dysphagia as well as weight loss. Patient reports worsening weakness in the last 2 months. He has had recent 2 other admissions related to generalized weakness. Generalized weakness -Patient need senior care facility rehab or inpatient rehab - PT and OT consult appreciated. Continue rehabilitation efforts. Palmira skin infection -Bilateral underneath breast area with significant erythema with white plaques. -Patient was started on Diflucan IV due to persistent symptoms. Plan to change to oral on discharge -Will start patient on Ketoconazole 2% cream BID X 3 weeks. -Will need to keep this area dry/clean. Reports of dysphagia with weight loss on admission: Patient states he has no problem swallowing and that he was weak and couldn't get to the kitchen -He is refusing any GI workup. Appreciate GI consult -Patient tolerating his diet. Full code. Lovenox. Discharge Planning: Plan to discharge to SNF tomorrow.
--- NOTE | 2018-05-11 12:08 | P.PNGI ---
Subjective Interval history: Laying in the bed dozing off and now. Patient states he was able to eat regular food and drink thin liquids without any choking this a.m. current hemoglobin 13.4 BM x2 over the past 24 hours <Dorina Chong - Last Filed: 05/11/18 12:01> Physical Exam Vital signs: Vital Signs 05/10/18 16:00 05/10/18 20:00 05/11/18 00:00 Temperature 98.1 F 97.4 F L 98.0 F Pulse Rate 81 94 H 68 Respiratory Rate 22 20 17 Blood Pressure 155/82 H 156/81 H 144/73 H Pulse Oximetry 98 96 96 05/11/18 04:00 05/11/18 08:00 Temperature 98.2 F 97.1 F L Pulse Rate 78 77 Respiratory Rate 17 23 Blood Pressure 158/77 H 172/79 H Pulse Oximetry 95 94 L Intake & Output 05/10/18 05/11/18 05/11/18 18:59 06:59 18:59 Intake Total 1960 / 1960 1400 / 1400 Output Total 1400 / 1400 550 / 550 Balance 560 / 560 850 / 850 Weight 134.2 kg Intake: IV 1000 / 1000 1000 / 1000 NS Inj 1,000 ML @ 100 mls/hr IV 1000 / 1000 1000 / 1000 .CONT .Q10H [facility] Rx#:[id number] Oral 960 / 960 400 / 400 Output: Urine 1400 / 1400 550 / 550 Other: Date of Last Bowel Movement 05/10/18 05/10/18 # Bowel Movements 2 - Constitutional no acute distress, morbidly obese, disheveled - Routine HEENT Exam Head: Present: normocephalic ENT: Present: mucous membranes moist - Routine Respiratory Exam Present: accessory muscle use (No obvious shortness of breath) - Routine Cardiovascular Exam Present: S1, S2 - Routine Abdominal Exam Present: normoactive bowel sounds (Round, no obvious abdominal pain) <Dorina Chong - Last Filed: 05/11/18 12:01> Vital signs: Vital Signs 05/10/18 16:00 05/10/18 20:00 05/11/18 00:00 Temperature 98.1 F 97.4 F L 98.0 F Pulse Rate 81 94 H 68 Respiratory Rate 22 20 17 Blood Pressure 155/82 H 156/81 H 144/73 H Pulse Oximetry 98 96 96 09/29/18 04:00 05/11/18 08:00 05/11/18 12:00 Temperature 98.2 F 97.1 F L 97.5 F L Pulse Rate 78 77 77 Respiratory Rate 17 23 22 Blood Pressure 158/77 H 172/79 H 137/77 Pulse Oximetry 95 94 L 93 L Intake & Output 05/10/18 05/11/18 05/11/18 18:59 06:59 18:59 Intake Total 1960 / 1960 1400 / 1400 1000 / 1000 Output Total 1400 / 1400 550 / 550 Balance 560 / 560 850 / 850 1000 / 1000 Weight 134.2 kg Intake: IV 1000 / 1000 1000 / 1000 1000 / 1000 NS Inj 1,000 ML @ 100 mls/hr IV 1000 / 1000 1000 / 1000 1000 / 1000 .CONT .Q10H [facility] Rx#:[id number] Oral 960 / 960 400 / 400 Output: Urine 1400 / 1400 550 / 550 Other: Date of Last Bowel Movement 05/10/18 05/10/18 # Bowel Movements 2 <Vargas Sprague - Last Filed: 05/11/18 15:46> Results - Labs CBC & Chem 7: 05/09/18 12:00 05/09/18 12:00 - Imaging Impressions Abdomen X-Ray 05/10/18 00:00 CONCLUSION: No acute abdominal abnormality is identified. There is a normal amount of stool visualized throughout the colon. <Dorina Chong - Last Filed: 05/11/18 12:01> - Labs CBC & Chem 7: 05/09/18 12:00 05/09/18 12:00 <Vargas Sprague - Last Filed: 05/11/18 15:46> Assessment and Plan - Plan Reports of dysphagia- Patient states that the only time he has issues swallowing is when he is unable to sit up straight and feels that he is tilted. Denies food getting stuck, odynophagia, regurgitation of food with meals, coughing or shortness of breath with meals. Patient denies any heartburn, nausea, vomiting, abdominal pain. States that he has noticed a little bit of a decreased appetite with early satiety but has related this to not eating much. - Constipation- States that he has not had a bowel movement in a week but reports this is secondary to being unable to make it to the kitchen to eat anything. Has been passing flatus. Patient also reports when he gets nervous that he has diarrhea, states that he has Crohn's disease, but has never had a colonoscopy and denies family history of this. Denies hematochezia or melena. - Unintentional weight loss- 50-60 lbs over 2 months- states this is because he has been too weak to make it to the kitchen to prepare food. Has never had EGD or colonoscopy Discussed EGD and colonoscopy with pt and he states that he will not undergo these procedures due to a friend passing away from complications of endoscopic procedures. Discussed risks and benefits and he is persistent he does not wish for EGD OR colonoscopy 05/11/2018 patient is resting in the bed states bowel movement x2 yesterday no obvious bleeding. Recent constipation could be related to TSH, currently 0.108. Speech therapy evaluated and stated regular diet with thin liquids is safe for patient current hemoglobin 13.4. Encourage patient to take bowel regimen and consider EGD and colonoscopy which he adamantly refuses. Monitor labs and constipation, any obvious choking episodes otherwise no further testing from a GI perspective. Patient's generalized weakness could be related to inactivity as well as obesity and age. Encourage patient to stay active and sit up in the chair as much as possible. GI will probably sign off Plan: Diet regular diet with thin liquids, encourage patient to sit up in bed and be fully alert and chew his food well Recommend EGD and colonoscopy, but patient continues to refuse Bowel regimen Supportive care Patient was seen per myself and Dr. 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 Tolerating diet. Doesnot want gi henry. GI will sign off. Discussed with DR Dsouza <Vargas Sprague - Last Filed: 05/11/18 15:46>
[2018-05-11] MEDS: Enoxaparin Inj 40 MG/0.4 ML Syringe SQ SCH (20:04)
[2018-05-12 09:32] VITALS: O2SAT 97
--- NOTE | 2018-05-12 10:23 | P.DS ---
Date of admission: 05/09/18 17:47 Primary care physician: No Primary Care Physician Brief History from admission: History as documented by the admitting physician: Mr. Wilson is a pleasant 68-year-old male with a history of hypertension who presents to the emergency department 2 days after being discharged due to worsening generalized weakness. He lives alone in a trailer since his mother 3 years ago. He was admitted on 05/07/2018 due to generalized weakness. He was found to have dehydration. He was given supportive care and subsequently with improvement he was discharged home with home health. However, patient reports that at home he is not able to take care of himself. When he uses bathroom, he is unable to get up. As a result of his weakness he is unable to get food and other basic items. Patient denies any chest pain, shortness of breath, cough, fever or chills. However he does report difficulty swallowing food especially solid food. He reports a feeling of food getting stuck in the middle of his chest. He reports that about 50-60 pound weight loss in the last 2 months. Patient denies any changes in bowel or bladder habits. Past medical history: Hypertension Past surgical history: No major surgeries. Social history: Patient denies using tobacco, alcohol, illicit drugs. Family history: No family history of Alzheimer's or Parkinson's. Patient update on day of discharge: Patient reports he is feeling okay today. Looking forward to rehab. Eating well. No new issues. DS: Diagnosis - Discharge Diagnosis (1) Generalized weakness Status: Acute (2) Palmira infection of flexural skin Status: Acute (3) Physical deconditioning Status: Acute DS: Summary Hospital Course: 68-year-old male with a history of hypertension who presents to the emergency department due to generalized weakness, dysphagia as well as weight loss. Patient reports worsening weakness in the last 2 months. He has had recent 2 other admissions related to generalized weakness. Inpatient evaluation and treatment course detailed below: Generalized weakness -Patient need assisted facility rehab or inpatient rehab - PT and OT consult appreciated. Continue rehabilitation efforts. Patient is discharged to assisted facility to continue rehabilitation. Palmira skin infection -Bilateral underneath breast area with significant erythema with white plaques. -Patient was started on Diflucan IV due to persistent symptoms. He is discharged on ketoconazole cream for couple of weeks. Reports of dysphagia with weight loss on admission: Patient states he has no problem swallowing and that he was weak and couldn't get to the kitchen. GI was consulted but the patient refused any GI workup. He was able to tolerate his diet. He is advised to follow-up outpatient with GI. - Time Spent with Patient Total time spent providing and/or coordinating discharge services: Greater than 30 minutes - Quality: VTE Deep Vein Thrombosis/Pulmonary Embolism Present on Admission: No Exam Vital signs: Vital Signs 05/11/18 12:00 05/11/18 16:00 05/11/18 20:00 Temperature 97.5 F L 98.1 F 97.4 F L Pulse Rate 77 70 88 Respiratory Rate 22 21 20 Blood Pressure 137/77 125/70 181/93 H Pulse Oximetry 93 L 94 L 95 05/12/18 00:00 05/12/18 04:00 05/12/18 08:00 Temperature 98.1 F 98.6 F 98.2 F Pulse Rate 84 87 80 Respiratory Rate 20 20 22 Blood Pressure 180/92 H 160/60 H 100/72 Pulse Oximetry 100 94 L 97 Intake & Output 05/11/18 05/12/18 05/12/18 18:59 06:59 18:59 Intake Total 1480 / 1480 1480 / 1480 Output Total 1200 / 1200 Balance 1480 / 1480 280 / 280 Intake: IV 1000 / 1000 1000 / 1000 NS Inj 1,000 ML @ 100 mls/hr IV 1000 / 1000 1000 / 1000 .CONT .Q10H [facility] Rx#:[id number] Oral 480 / 480 480 / 480 Output: Urine 1200 / 1200 Other: # Voids 4 4 Date of Last Bowel Movement 05/10/18 05/11/18 # Bowel Movements 2 Narrative: GENERAL: Morbidly obese male. SKIN: There are small circular brown color plaques on his lower ext, significant erythema with white plaques below his bilateral breast area. CARDIOVASCULAR: Regular rate and rhythm without murmurs, gallops, or rubs. No JVD. RESPIRATORY: Clear to auscultation. Breath sounds equal bilaterally. No wheezes , rales, or rhonchi. GASTROINTESTINAL: Abdomen obese, soft, non-tender, nondistended. No guarding. NEUROLOGICAL: Awake and alert. Normal speech. Generalized weakness but no focal deficits. Results Procedures completed during hospitalization: None - Impressions ITS Impressions Chest X-Ray 05/09/18 11:44 CONCLUSION: Cardiomegaly. Mild basilar atelectasis. Abdomen X-Ray 05/10/18 00:00 CONCLUSION: No acute abdominal abnormality is identified. There is a normal amount of stool visualized throughout the colon. Discharge Plan - Discharge Disposition Patient Disposition: Discharge to SNF - Discharge Condition Condition: Stable - Discharge Order Discharge Orders: Discharge Order (Routine); Ordered 05/12/18 Ordered By: Trey Carranza - Physicians Team Primary Care Provider: Primary Care Gita Maciel Attending Provider: Trey Carranza Other Providers: Vargas Sprague MD
[2018-05-12 13:03] VITALS: BP 113/73; PULSE 84; RESP 23; TEMP 98
[2018-05-12] MEDS ORDERED: Loperamide 2 MG Capsule PO ONE (15:00)
== END 2018-05-12 16:26 ==
LOC: NEPC 11:06 → NEDA 11:06 → N04 20:29
PROVIDERS: ADMIT Family Medicine; ATTEND Family Medicine